=== PATIENT | female | born 1980 | race Caucasian/White ===

== ENCOUNTER 2017-05-11 09:49 | Emergency (ER) | payer BC ==
[2017-05-11 12:41] VITALS: BP 130/88
--- NOTE | 2017-05-11 12:50 | UC ---
Throat Pain/Nasal Arnol HPI - HPI Summary HPI Summary: Pt c/o sinus congestion, pain, pressure and FENTON X 4 weeks> Pt has history of sinus infections. Had sinus surgery ~ 2 year ago. - History of Current Complaint Chief Complaint: UCRespiratory Stated Complaint: SINUSES Time Seen by Provider: 05/11/17 12:35 Hx Obtained From: Patient ?: No Onset/Duration: Gradual Onset, Lasting Weeks, Still Present Severity: Moderate Pain Intensity: 8 Associated Signs & Symptoms: Positive: Sinus Discomfort - Epiglottits Risk Factors Epiglottis Risk Factors: Negative - Allergies/Home Medications Allergies/Adverse Reactions: Allergies Allergy/AdvReac Type Severity Reaction Status Date / Time Penicillins Allergy Hives Verified 05/11/17 12:36 PMH/Surg Hx/FS Hx/Imm Hx Previously Healthy: Yes - Surgical History Surgical History: Yes Surgery Procedure, Year, and Place: Sinus sx. - Family History Known Family History: Positive: Cardiac Disease - Social History Occupation: Employed Full-time Lives: With Family Alcohol Use: Occasionally Substance Use Type: None Smoking Status (MU): Never Smoked Tobacco Have You Smoked in the Last Year: No Review of Systems Constitutional: Fatigue Skin: Negative Eyes: Negative ENT: Sinus Congestion, Sinus Pain/Tenderness Respiratory: Negative Cardiovascular: Negative Gastrointestinal: Negative Genitourinary: Negative Motor: Negative Neurovascular: Negative Musculoskeletal: Negative Neurological: Headache Psychological: Negative Is Patient Immunocompromised?: No All Other Systems Reviewed And Are Negative: Yes Physical Exam Triage Information Reviewed: Yes Appearance: Well-Appearing Vital Signs: Initial Vital Signs Temp 97.6 F 05/11/17 12:37 Pulse 62 05/11/17 12:37 Resp 16 05/11/17 12:37 BP 130/88 05/11/17 12:37 Pulse Ox 100 05/11/17 12:37 Vital Signs Reviewed: Yes Eye Exam: Normal ENT Exam: Other ENT: Positive: Nasal congestion, Sinus tenderness Dental Exam: Normal Neck exam: Normal Respiratory Exam: Normal Cardiovascular Exam: Normal Musculoskeletal Exam: Normal Neurological Exam: Normal Psychological Exam: Normal Skin Exam: Normal Throat Pain/Nasal Course/Dx - Differential Dx/Diagnosis Differential Diagnosis/HQI/PQRI: Sinusitis, URI Provider Diagnoses: Sinusitis Discharge - Discharge Plan Condition: Stable Disposition: HOME Prescriptions: DOXYcycline CAP(*) [DOXYcycline 100MG CAP(*)] 100 mg PO Q12H #20 cap Guaifenesin/Pseudo 600/60(NF) [Mucinex D 600/60 (NF)] 1 tab PO Q12H #14 tab Patient Education Materials: Sinusitis (ED) Referrals: Aiden Mercado DO [Primary Care Provider] - If Needed
== END 2017-05-11 13:04 | disposition home or self-care (01) ==
LOC: UCCORT 09:49
DX: J32.9 Chronic sinusitis, unspecified (principal); Z88.0 Allergy status to penicillin
CPT/HCPCS: 99202; G0463

== ENCOUNTER → 2019-01-28 | Day surgery (SDC) | payer BC ==
[~2019-01-28] MED LIST: Acetaminophen TAB* 325 MG ONE; Acetaminophen TAB* 325 MG PO ONE; Bacitracin OINTMENT* 0.5% 0.5 oz TUBE ONE; Buffered Lidocaine 1% SYRIN* 1 ML/SYRINGE INTRADERM ONE; Dexamethasone IV* 4 MG/ML 1 ML (4 MG) ONE; DiMENhydriNATE IV* 50 MG/ML VIAL IV PUSH PRN; Famotidine IV* 10 MG/ML 2 ML (20 mg) IV ONE; Famotidine IV* 10 MG/ML 2 ML (20 mg) ONE; Gabapentin CAP(*) 300 MG ONE; Gabapentin CAP(*) 300 MG PO ONE; HYDROcodone/ACETAMIN 5-325 MG* 1 TAB PO PRN; Ketorolac INJ* 30 MG/ML 1 ML VIAL ONE; Lactated Ringers 1000 ML Bag* 1,000 ML IV SCH; Lidocaine 1% w EPI 1:100,000* MDV 20 ML VIAL ONE; Lidocaine 2% PF * 5 ML VIAL ONE; Lidocaine 4% TOPICAL* 50 ML TOP.SOLN ONE; Midazolam* 1 MG/ML 2 ML VIAL (2 MG) ONE; Naloxone* 0.4 MG/ML 1 ML VIAL IV PRN; Ondansetron INJ* 2 MG/ML VIAL IV PRN; Ondansetron INJ* 2 MG/ML VIAL ONE; Oxymetazoline 0.05% NASAL SPR* 15 ML BTL ONE; Propofol* 10 MG/ML 20 ML BTL ONE; diPHENhydraMINE IV* 50 MG/ML 1 ml VIAL (BENADRYL) IV PRN; fentaNYL* 50 MCG/ML 2 ML VIAL (100 MCG VIAL) IV PRN; fentaNYL* 50 MCG/ML 2 ML VIAL (100 MCG VIAL) ONE
[2019-01-28 10:19] VITALS: BP 110/76
--- NOTE | 2019-01-28 12:39 | OP ---
DATE OF OPERATION: 01/28/19 - SDS DATE OF : 78 SURGEON: Peterson Dominguez MD PRE-OP DIAGNOSIS: Chronic maxillary sinusitis. POST-OP DIAGNOSIS: Chronic maxillary sinusitis. OPERATIVE PROCEDURE: Bilateral endoscopic sinus surgery with maxillary antrostomies with debridement under general laryngeal mask anesthesia. COMPLICATIONS: None. DISPOSITION: Good. SPECIMENS: Left and right maxillary sinus contents. DESCRIPTION OF PROCEDURE: The patient was taken to the operating room, placed in the supine position on the operating room table. General anesthesia was induced and maintained with laryngeal mask anesthesia. Her nose was packed bilaterally with cottonoids impregnated with oxymetazoline and 4% lidocaine. She was draped for the surgery. After several minutes, the packs were removed and the scope was brought in. What I saw was that her uncinate processes were still intact and secondary ostium had been surgically formed posterior to her natural ostium which were blocked. This was consistent with what was seen on CT scan. The middle turbinates were injected with 1% lidocaine and 1:100,000 epinephrine. A sickle knife was used to make a cut on the uncinate process and then this was grasped with curved Blakesley and removed. There was pus draining from the right maxillary sinus which was suctioned. Using the backbiters and Blakesley's, the ostia were widened and the natural ostium was connected to the previously surgically made secondary ostium. This was done bilaterally. The patient tolerated this well. No complications. He was transferred to the recovery room in stable condition. [id number] #: [id number] MTDD
== END | disposition home or self-care (01) ==
LOC: OR 07:36
PROVIDERS: ATTEND Otolaryngology
DX: J32.0 Chronic maxillary sinusitis (principal); Z87.891 Personal history of nicotine dependence; K21.9 Gastro-esophageal reflux disease without esophagitis
CPT/HCPCS: 81025; 88305; 88341; 88342; A9270-GY; J1100; J1885; J2250; J2405; J2704; J3010